=== PATIENT | male | born 1940 | race Caucasian/White ===

== ENCOUNTER → 2020-09-14 | Outpatient (CLI) | payer MEDICARE | LOC: KOH-I 08:00 | DX: R91.1 Solitary pulmonary nodule (principal) | CPT/HCPCS: 71250 ==

== ENCOUNTER → 2021-10-24 | Outpatient (CLI) | payer MEDICARE | LOC: KOH-I 09-15 09:00 | DX: R91.8 Other nonspecific abnormal finding of lung field (principal) | CPT/HCPCS: 71250 ==

== ENCOUNTER → 2022-03-23 | Outpatient (CLI) | payer MEDICARE | LOC: KOH-I 10:15 | DX: M47.896 Other spondylosis, lumbar region (principal); M54.59 Other low back pain; M25.78 Osteophyte, vertebrae | CPT/HCPCS: 72148 ==